=== PATIENT | female | born 1985 | race Caucasian/White ===

== ENCOUNTER 2018-10-25 06:21 | Inpatient (IN) ==
[2018-10-25] MEDS ORDERED: BUTORPHANOL 2 MG/ML VIAL IV PRN (06:30)
[2018-10-25] MEDS ORDERED: MEPERIDINE 50 MG/1 ML VIAL IV PRN (06:30)
[2018-10-25] MEDS ORDERED: ONDANSETRON 4 MG/2 ML VIAL IV PRN ×2 (06:30→19:49)
[2018-10-25] MEDS ORDERED: LACTATED RINGERS 500 ML IV PRN (06:30)
[2018-10-25 07:05] LABS: Basophils % 0.4 % (0.0-0.8); Eosinophils # 0.1 10*3/uL (0.0-0.87); Eosinophils % 0.7 % (0.00-10.9); Hemoglobin 12.1 GM/DL (12.0-16.0); Immature Granulocytes % 0.4 %; Immature Granulocytes Absolute 0.04 #; Lymphocytes # 2.4 10*3/uL (1.4-4.0); Lymphocytes % 26.4 % (21.3-54.2); Mean Corpuscular HGB Conc 32.7 GM/DL (32-36); Mean Corpuscular Volume 87.7 FL (87-102); Mean Platelet Volume 12.1 FL (9.6-12.0); Monocytes % 9.2 % (1.7-12.7); Neutrophils % 62.9 % (38.7-73.9); Platelet Count 159 T/CUMM (130-400); Red Blood Count 4.22 MC/CUMM (3.8-5.5); Red Cell Distribution Width 12.7 % (9.3-17.3); White Blood Count 9.1 T/CUMM (4-12)
[2018-10-25] MEDS: LACTATED RINGERS 1,000 ML IV SCH ×2 (07:05→19:34)
[2018-10-25] MEDS ORDERED: LACTATED RINGERS 1,000 ML IV ONE (07:22)
[2018-10-25] MEDS ORDERED: OXYTOCIN/LR 20 UNIT/1,000 ML BAG IV SCH (07:30)
[2018-10-25] MEDS ORDERED: ePHEDrine 50 MG/ML AMP IV PRN (12:08)
[2018-10-25] MEDS ORDERED: FAMOTIDINE 20 MG/2 ML VIAL IV ONE (12:08)
[2018-10-25] MEDS ORDERED: CITRIC ACID/SODIUM CITRATE 30 ML UDCUP PO ONE (12:08)
[2018-10-25] MEDS ORDERED: hydrOXYzine HCL 25 MG/1 ML VIAL IM PRN (12:09)
[2018-10-25] MEDS ORDERED: NALOXONE 0.4 MG/ML VIAL IV PRN (12:09)
[2018-10-25] MEDS ORDERED: PROMETHAZINE 25 MG/1 ML VIAL IM ONE (12:09)
[2018-10-25] MEDS ORDERED: diphenhydrAMINE 50 MG/1 ML VIAL IV PRN ×2 (12:09)
[2018-10-25] MEDS ORDERED: fentaNYL 2 MCG/ROPIV 0.2% EPID 100 ML EPIDURAL SCH (12:30)
[2018-10-25 14:50] LABS: Apearance,Urine CLEAR (Clear); Bilirubin,Urine Negative (Negative); Blood, Urine Small mg/dL (Negative); Glucose,Urine (UA) Negative (Negative); Ketones,Urine 20 mg/dL (Negative); Nitrite,Urine Negative (Negative); Protein,Urine Negative; RBC,Urine <1 /HPF (0-4); Urine Color Straw (Yellow); Urine Specific Gravity 1.006 (1.001-1.035); Urine Urobilinogen < 2.0 EU/DL (0.2-1.0); WBC,Urine <1 /HPF (0-6)
[2018-10-25] MEDS ORDERED: miSOPROStol 200 MCG TABLET ONE (16:21)
[2018-10-25] MEDS ORDERED: METHYLERGONOVINE 0.2 MG/1 ML AMP ONE (16:22)
[2018-10-25] MEDS ORDERED: CARBOPROST TROMETHAMINE 250 MCG/ML AMP IM ONE ×2 (16:22→19:04)
[2018-10-25] MEDS ORDERED: miSOPROStol 200 MCG TABLET PO ONE (18:42)
[2018-10-25] MEDS ORDERED: METHYLERGONOVINE 0.2 MG/1 ML AMP IM ONE (19:01)
[2018-10-25 19:29] LABS: Hematocrit 35.7 VOL% (35.7-47.0); Hemoglobin 11.8 GM/DL (12.0-16.0)
[2018-10-25] MEDS ORDERED: MEASLES/MUMPS/RUBELLA VACCINE 0.5 ML VIAL SUBCUT ONE (19:49)
[2018-10-25] MEDS ORDERED: WITCH HAZEL PADS 100/JAR TOP PRN (19:49)
[2018-10-25] MEDS ORDERED: OXYTOCIN/LR 20 UNIT/1,000 ML BAG IV ONE (19:49)
[2018-10-25] MEDS ORDERED: ACETAMINOPHEN 325 MG TABLET PO PRN (19:49)
[2018-10-25] MEDS ORDERED: RHO(D) IMMUNE GLOBULIN 300 MCG SYRINGE IM ONE (19:49)
[2018-10-25] MEDS ORDERED: oxyCODONE/ACETAMINOPHEN 5-325 MG TABLET PO PRN ×2 (19:49)
[2018-10-25] MEDS ORDERED: HYDROCORTISONE 2.5% RECTAL CREAM 30 GM TUBE TOP PRN (19:49)
[2018-10-25] MEDS ORDERED: BISACODYL 10 MG SUPP RECTAL PRN (19:49)
[2018-10-25] MEDS ORDERED: DIPH/TET/ACEL PERT BOOSTER VACCINE 0.5 ML VIAL IM ONE (19:49)
[2018-10-25] MEDS ORDERED: LANOLIN 50% CREAM 0.3 OZ TUBE TOP PRN (19:49)
[2018-10-25] MEDS: DOCUSATE SODIUM 100 MG CAPSULE PO SCH (22:09)
[2018-10-25] MEDS: IBUPROFEN 800 MG TABLET PO PRN (22:16)
[2018-10-25 22:41] LABS: Hematocrit 31.7 VOL% (35.7-47.0); Hemoglobin 10.5 GM/DL (12.0-16.0)
[2018-10-25] MEDS: BENZOCAINE 20%/MENTHOL 0.5% SPRAY 56 GM CAN TOP PRN (23:51)
[2018-10-26] MEDS: METHYLERGONOVINE 0.2 MG TABLET PO SCH ×3 (03:03→19:00)
[2018-10-26 04:55] LABS: Basophils % 0.1 % (0.0-0.8); Hematocrit 30.6 VOL% (35.7-47.0); Hemoglobin 10.1 GM/DL (12.0-16.0); Immature Granulocytes % 0.4 %; Immature Granulocytes Absolute 0.08 #; Lymphocytes # 1.2 10*3/uL (1.4-4.0); Lymphocytes % 6.1 % (21.3-54.2); Mean Corpuscular Volume 87.2 FL (87-102); Mean Platelet Volume 12.4 FL (9.6-12.0); Monocytes % 3.3 % (1.7-12.7); Neutrophils % 90.1 % (38.7-73.9); Platelet Count 133 T/CUMM (130-400); Red Blood Count 3.51 MC/CUMM (3.8-5.5); Red Cell Distribution Width 12.6 % (9.3-17.3); White Blood Count 19.7 T/CUMM (4-12)
[2018-10-26] MEDS: IBUPROFEN 800 MG TABLET PO PRN ×2 (06:17→17:35)
[2018-10-26] MEDS ORDERED: ceFAZolin 2,000 MG in PREMIX 1 EACH IV ONE (09:24)
[2018-10-26] MEDS: DOCUSATE SODIUM 100 MG CAPSULE PO SCH ×2 (09:53→21:37)
[2018-10-26] MEDS: BENZOCAINE 20%/MENTHOL 0.5% SPRAY 56 GM CAN TOP PRN (11:18)
[2018-10-26] MEDS: MULTIVITAMIN (PRENATAL) TABLET PO SCH (13:04)
[2018-10-26] MEDS: ceFAZolin 1,000 MG in SYRINGE 1 EACH IV SCH (18:10)
[2018-10-26 19:14] LABS: Basophils # 0.1 10*3/uL (0.0-0.2); Basophils % 0.3 % (0.0-0.8); Hematocrit 24.5 VOL% (35.7-47.0); Hemoglobin 8.1 GM/DL (12.0-16.0); Immature Granulocytes % 1.4 %; Immature Granulocytes Absolute 0.33 #; Lymphocytes # 1.3 10*3/uL (1.4-4.0); Lymphocytes % 5.4 % (21.3-54.2); Mean Corpuscular HGB Conc 33.1 GM/DL (32-36); Mean Corpuscular Volume 88.1 FL (87-102); Mean Platelet Volume 12.2 FL (9.6-12.0); Monocytes % 4.2 % (1.7-12.7); Neutrophils % 88.7 % (38.7-73.9); Platelet Count 128 T/CUMM (130-400); Red Blood Count 2.78 MC/CUMM (3.8-5.5); Red Cell Distribution Width 12.7 % (9.3-17.3)
[2018-10-26 20:51] LABS: Band Neutrophils 6 % (0-10); Lymphocytes 5 % (20-55); Segmented Neutrophils 87 % (50-85); Total Cells Counted 100
[2018-10-26 20:52] LABS: Platelet Estimate Normal
[2018-10-27] MEDS: IBUPROFEN 800 MG TABLET PO PRN ×3 (00:56→18:22)
[2018-10-27] MEDS: ceFAZolin 1,000 MG in SYRINGE 1 EACH IV SCH ×3 (02:40→18:15)
[2018-10-27] MEDS: METHYLERGONOVINE 0.2 MG TABLET PO SCH (02:46)
[2018-10-27] MEDS: DOCUSATE SODIUM 100 MG CAPSULE PO SCH ×2 (09:05→20:43)
[2018-10-27] MEDS: MULTIVITAMIN (PRENATAL) TABLET PO SCH (09:05)
[2018-10-27 09:47] LABS: Basophils # 0.1 10*3/uL (0.0-0.2); Basophils % 0.3 % (0.0-0.8); Eosinophils # 0.1 10*3/uL (0.0-0.87); Eosinophils % 0.4 % (0.00-10.9); Hematocrit 27.4 VOL% (35.7-47.0); Hemoglobin 8.7 GM/DL (12.0-16.0); Immature Granulocytes % 1.4 %; Immature Granulocytes Absolute 0.31 #; Lymphocytes # 1.6 10*3/uL (1.4-4.0); Lymphocytes % 7.2 % (21.3-54.2); Mean Corpuscular HGB Conc 31.8 GM/DL (32-36); Mean Corpuscular Volume 90.1 FL (87-102); Mean Platelet Volume 11.5 FL (9.6-12.0); Monocytes % 2.9 % (1.7-12.7); Neutrophils % 87.8 % (38.7-73.9); Platelet Count 136 T/CUMM (130-400); Red Blood Count 3.04 MC/CUMM (3.8-5.5); Red Cell Distribution Width 12.9 % (9.3-17.3); White Blood Count 21.5 T/CUMM (4-12)
[2018-10-27 10:16] LABS: Band Neutrophils 1 % (0-10); Eosinophils 1 % (0-10); Hypochromasia Slight; Lymphocytes 6 % (20-55); Platelet Estimate Normal; Segmented Neutrophils 90 % (50-85); Total Cells Counted 100
[2018-10-27] MEDS ORDERED: FLUCONAZOLE 150 MG TABLET PO ONE (21:00)
[2018-10-28] MEDS: ceFAZolin 1,000 MG in SYRINGE 1 EACH IV SCH ×2 (01:35→09:25)
[2018-10-28] MEDS: IBUPROFEN 800 MG TABLET PO PRN ×2 (01:40→09:31)
[2018-10-28 05:30] LABS: Basophils % 0.3 % (0.0-0.8); Eosinophils # 0.3 10*3/uL (0.0-0.87); Eosinophils % 1.9 % (0.00-10.9); Hemoglobin 7.1 GM/DL (12.0-16.0); Immature Granulocytes % 0.6 %; Immature Granulocytes Absolute 0.08 #; Lymphocytes # 2.6 10*3/uL (1.4-4.0); Lymphocytes % 19.6 % (21.3-54.2); Mean Corpuscular HGB Conc 32.3 GM/DL (32-36); Mean Corpuscular Volume 89.8 FL (87-102); Mean Platelet Volume 11.9 FL (9.6-12.0); Monocytes % 5.6 % (1.7-12.7); Platelet Count 133 T/CUMM (130-400); Red Blood Count 2.45 MC/CUMM (3.8-5.5); Red Cell Distribution Width 12.9 % (9.3-17.3); White Blood Count 13.3 T/CUMM (4-12)
[2018-10-28] MEDS ORDERED: FERROUS SULFATE 325 MG TABLET PO SCH (09:00)
[2018-10-28] MEDS: MULTIVITAMIN (PRENATAL) TABLET PO SCH (09:30)
[2018-10-28] MEDS: DOCUSATE SODIUM 100 MG CAPSULE PO SCH (09:32)
[2018-10-28 12:32] VITALS: BP 111/60
== END 2018-10-28 13:15 | disposition home or self-care (01) | DRG 806 ==
LOC: N.LDOUT 06:21 → N.LD 06:24 → N.OB 21:45
PROVIDERS: ADMIT Obstetrics & Gynecology; ATTEND Obstetrics & Gynecology